=== PATIENT | male | born 1965 | race Caucasian/White ===

== ENCOUNTER 2016-03-21 08:00 | Outpatient (CLI) | payer MEDICARE ==
[~2016-03-21] VITALS: Ht 182.9 cm; Wt 90.7 kg
[2016-03-21 14:54] LABS: APPEARANCE HAZY (CLEAR); COLOR YELLOW (YELLOW)
[2016-03-21 14:55] LABS: BILIRUBIN NEGATIVE (NEGATIVE); GLUCOSE NEGATIVE (NEGATIVE); KETONE NEGATIVE (NEGATIVE); LEUKOCYTE ESTERASE 2+ (NEGATIVE); NITRITE POSITIVE (NEGATIVE); PROTEIN 1+ mg/dL (NEGATIVE); UROBILINOGEN NORMAL (NORMAL)
[2016-03-21 15:09] LABS: BACTERIA MANY /hpf (NONE SEEN); MUCUS >1+ /lpf (NONE SEEN); RED CELLS - URINE 0-5 /hpf (0-5); WHITE CELLS - URINE >50 /hpf (0-5)
[2016-03-21 15:12] LABS: BASOPHILS 0.4 % (0.0-2.0); EOSINOPHILS 2.3 % (0-7); HEMATOCRIT 43.8 % (42.0-54.0); HEMOGLOBIN 15.7 g/dL (13.5-17.5); IMMATURE GRANULOCYTES 0.3 % (0-5); LYMPHOCYTES 26.9 % (15-50); MCH 32.2 pg (26.0-34.0); MCHC 35.8 g/dL (31.0-37.0); MCV 89.8 fL (80.0-100.0); MEAN PLATELET VOLUME 10.7 fL (7.4-10.4); MONOCYTES 6.6 % (2-11); NEUTROPHILS 63.5 % (40-80); PLATELET COUNT 213 10x3/uL (130-400); RBC 4.88 10x6/uL (4.20-6.10); RDW 13.7 % (11.5-14.5); WBC 10.2 10x3/uL (4.8-10.8)
[2016-03-21 15:24] LABS: INR 0.99 (0.85-1.17); PROTIME 12.9 SECONDS (11.6-15.0)
[2016-03-21 15:35] LABS: CALC OSMOLALITY 278 mosm/kg (275-300); CALCIUM 8.9 mg/dL (8.5-10.1); CARBON DIOXIDE 24.7 mmol/L (21.0-32.0); CHLORIDE - SERUM 103 mmol/L (98-107); GLUCOSE 95 mg/dL (74-106); POTASSIUM - SERUM 3.7 mmol/L (3.5-5.1); SODIUM 139 mmol/L (136-145); UREA NITROGEN 14 mg/dL (7-18); eGFR NON AFRICAN AMERICAN 84 mL/min (90-120)
--- NOTE | 2016-03-22 09:39 | HP ---
PATIENT: KATHY PAULINO MEDICAL RECORD: [id number] ACCOUNT: [id number] LOCATION:[facility] – [place], [place].[facility] [place]- : 65 ADMISSION DATE: 03/22/16 HISTORY AND PHYSICAL EXAMINATION CHIEF COMPLAINT: Neck pain. HISTORY OF PRESENT ILLNESS: This is an obese male, who presented to our office with complaints of severe neck pain, which radiates into both shoulders. He rates his pain at the worst at 10 out of 10. It does at times ____ to 6 out of 10. He has had this for greater than 15 years and has gradually gotten worse. He also now has bilateral upper extremity pain distal to the elbow, which is associated with an electrical-type shock with occasional tingling and numbness. It is better with rest. It is worse when he is lying flat. He smokes a ____ pack of cigarettes per day. PAST MEDICAL HISTORY: His past medical history is significant for nasal reconstruction. He has PTSD. PAST SURGICAL HISTORY: His past surgical history again is nasal reconstruction, right shoulder surgery, left ankle surgery and the low back surgery many years ago. FAMILY HISTORY: His father with complications related to Alzheimer's and had a sister who is killed by a gun shot. SOCIAL HISTORY: He is . He smokes an undetermined amount per day. FAMILY DOCTOR: Dr. Lu in [place]. CURRENT MEDICATIONS: All he notices is that he is on blood pressure medicines and he denies any use of any blood thinners. ALLERGIES: PENICILLIN AND SULFA. REVIEW OF SYSTEMS: He denies any recent chest pain, shortness of breath or weight changes. PHYSICAL EXAMINATION: GENERAL: This is a 6 feet, ____ white male. HEENT: Normocephalic. Pupils are equal and reactive to light. CHEST: Clear to auscultation. HEART: S1 and S2. ABDOMEN: Soft. Bowel sounds are present. NECK: There is decreased range of motion. EXTREMITIES: He has a bilateral equal catcher helper. IMPRESSION: C5-C6, C6-C7 foraminal stenosis, C7 with more radicular symptoms than C6. Plan is a C5-C6, C6-C7 ACDF with Alphatec with monitoring. The risk and benefits of surgery have been explained to him in detail. Risks include bleeding, failure to relieve symptoms, problems with anesthesia and . Time was allowed for questions, questions were answered. The patient wishes to proceed with surgery. HISTORY AND PHYSICAL [id number] KATHY PAULINO TRANSINT:[id number] Voice Confirmation ID: [id number] DOCUMENT ID: [id number] Dictated By: MATILDA ZAMORA I have interviewed/examined the above patient and agree with these documented findings. NEVAEH CHESTER MD at 0939 at 1102 CC: [id number] DICTATION DATE: 03/21/16 1604 ALLIGATOR HUNTER: 03/21/16 1838 ADM IN [facility] [address] [id number]
== END 2016-03-21 23:59 | disposition home or self-care (01) ==
LOC: D.PAN 08:00 → D.SDCHOLD 03-22 06:17 → EDSTATUS 03-22 09:00 → D.SDCHOLD 03-22 09:00
PROVIDERS: Neurological Surgery
DX: M50.122 Cervical disc disorder at C5-C6 level with radiculopathy (principal); Z01.810 Encounter for preprocedural cardiovascular examination; Z01.811 Encounter for preprocedural respiratory examination; Z01.812 Encounter for preprocedural laboratory examination; Z53.9 Procedure and treatment not carried out, unspecified reason